=== PATIENT | male | born 1965 | race Caucasian/White ===

== ENCOUNTER 2019-07-05 22:03 | Emergency (ER) | payer SELFPAY ==
[2019-07-05 22:36] LABS: Absolute Lymphocytes (CBC) 2.5 K/uL (0.7-4.9); Basophils % 0.4 % (0-1.3); Hematocrit 45.9 % (39.6-49.0); Lymphocytes % 27.6 % (15.3-44.8); MPV 7.1 fL (7.6-11.3); RBC Red Blood Cell Count 5.06 M/uL (4.33-5.43)
[2019-07-05 22:56] LABS: Potassium 3.9 mmol/L (3.5-5.1)
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
== END 2019-07-05 23:43 | disposition left against medical advice (07) ==
LOC: ER 22:03
DX: F10.129 Alcohol abuse with intoxication, unspecified (principal); V49.40XA Driver injured in collision with unspecified motor vehicles in traffic accident, initial encounter
CPT/HCPCS: 36415; 70450; 71045; 71260; 72125; 74177; 80048; 80320; 85025; 86850; 86900; 86901; 99284; Q9967